=== PATIENT | male | born 1960 ===

== ENCOUNTER 2017-08-30 10:33 | Inpatient (IN) | payer BC, SELFPAY ==
[~2017-08-30 10:33] MED LIST: ISOVUE-370 76%-LOCM 1 ML ONE
[2017-08-30 10:54] LABS: #Lymphocytes 0.8 thou/uL (1.20-3.40); #Monocytes 1.6 thou/uL (0.11-0.59); #Neutrophils 11.8 thou/uL (1.40-6.50); %Eosinophils 0.2 % (0.0-10.0); %Lymphocytes 5.7 % (21.0-51.0); %Monocytes 11.1 % (0.0-10.0); %Neutrophils 83.1 % (42.0-75.0); Hemoglobin 13.4 g/dL (14.0-18.0); Mean Corpuscular Hemoglobin 35.3 pg (27.0-31.0); Mean Platelet Volume 8.3 fL (7.4-10.4); Platelet Count 121 thou/uL (130-400); RBC Distribution Width 13.8 % (11.5-14.5); Red Blood Cell (RBC) Count 3.81 mill/uL (4.70-6.10); White Blood Cell (WBC) Count 14.2 thou/uL (4.8-10.8)
[2017-08-30 10:58] LABS: PTT 31.4 SEC (22.9-36.1); Prothrombin Time 13.4 SEC (12.0-14.7)
[2017-08-30 11:13] LABS: Acetaminophen Less than 6.0 mcg/mL (10.0-30.0); Alcohol Less than 10 mg/dL (Less than 10); CK (CPK) 1025 U/L (30-200); Salicylate Less than 8.0 mg/dL (15.0-30.0)
[2017-08-30 11:14] LABS: ALT (SGPT) 40 U/L (8-55); AST (SGOT) 40 U/L (5-34); Albumin 4.2 g/dL (3.5-5.0); Alkaline Phosphatase 78 U/L (40-150); Anion Gap 18 mmol/L (10-20); BUN (Urea Nitrogen) 26 mg/dL (8.4-25.7); Bilirubin, Total 3.1 mg/dL (0.2-1.2); Calc. Creatinine Clearance 0 mL/min (70-130); Calcium 9.8 mg/dL (7.8-10.44); Carbon Dioxide 21 mmol/L (22-29); Chloride 102 mmol/L (98-107); Estimated GFR-MDRD 72; Globulin 3.8 g/dL (2.4-3.5); Glucose 184 mg/dL (70-105); Potassium 3.6 mmol/L (3.5-5.1); Sodium 137 mmol/L (136-145)
[2017-08-30 11:29] LABS: Bilirubin Small (Negative); Blood, Urine Moderate (Negative); Glucose, Urine (Dipstick) 250 mg/dL (Negative); Leukocyte Negative (Negative); Nitrite Negative (Negative); Protein, Urine (Dipstick) 100 mg/dL (Neg-Trace); Urobilinogen 0.2 mg/dL (0.2-1.0)
[2017-08-30 11:35] LABS: Clarity Hazy (Clear)
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
[2017-08-30] MEDS ORDERED: Adacel (T-DAP) 0.5 ML VIAL ONE (11:39)
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
[2017-08-30 11:43] LABS: Bacteria/HPF None Seen HPF (None Seen); RBC/HPF 0-3 HPF (0-3); Squamous Epithelial 0-3 HPF (0-3); WBC/HPF 0-3 HPF (0-3)
[2017-08-30 11:44] LABS: Crystals/HPF RARE AMORPH URATES HPF (Negative); Hyaline Casts/LPF NONE SEEN LPF (0-3 Hyaline)
[2017-08-30 11:45] LABS: Amphetamine Not Detected (NotDetected); Barbiturates Screen Not Detected (NotDetected); Benzodiazepine Screen Not Detected (NotDetected); Cocaine Metabolite Screen Not Detected (NotDetected); Medtox Control Line Valid? VALID (VALID); Medtox Reader # READER 1; Methadone Not Detected (NotDetected); Methamphetamine Not Detected (NotDetected); Opiate Screen Not Detected (NotDetected); Oxycodone Screen Not Detected (NotDetected); Phencyclidine (PCP) Not Detected (NotDetected); THC/Cannabinoid Screen Not Detected (NotDetected); Tricyclic Screen Not Detected (NotDetected)
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
[2017-08-30] MEDS ORDERED: Dextrose 5% in Water 1,000 ML IV PRN (12:33)
[2017-08-30] MEDS ORDERED: Ondansetron HCl/PF 4 MG/2 ML Vial IVP PRN (12:33)
[2017-08-30] MEDS ORDERED: Dextrose 50% Abboject 50 ML SYRINGE SLOW IVP PRN (12:33)
[2017-08-30] MEDS ORDERED: Sodium Chloride 0.9% 1,000 ML IV SCH ×2 (12:45→14:47)
[2017-08-30 13:16] LABS: Magnesium 1.6 mg/dL (1.6-2.6); Phosphorus 2.4 mg/dL (2.3-4.7)
[2017-08-30 13:17] VITALS: BMI 22.1
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
[2017-08-30] MEDS: Labetalol HCl 100 MG/20 ML VIAL SLOW IVP PRN (14:40)
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
[2017-08-30] MEDS: Acetaminophen 1,000 MG in Premix Bag 1 BAG IVPB SCH (17:02)
[2017-08-30] MEDS: Sodium Chloride 0.9% 1,000 ML IV SCH ×2 (17:58→21:24)
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
[2017-08-30] MEDS: Famotidine/PF 20 mg/2ml Vial SLOW IVP SCH (21:24)
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
[2017-08-31] MEDS: Acetaminophen 1,000 MG in Premix Bag 1 BAG IVPB SCH ×6 (00:03→23:55)
[2017-08-31 05:05] LABS: #Lymphocytes 0.7 thou/uL (1.20-3.40); #Monocytes 0.7 thou/uL (0.11-0.59); #Neutrophils 5.9 thou/uL (1.40-6.50); %Eosinophils 0.3 % (0.0-10.0); %Lymphocytes 9.7 % (21.0-51.0); %Monocytes 8.9 % (0.0-10.0); %Neutrophils 81.1 % (42.0-75.0); Hemoglobin 11.6 g/dL (14.0-18.0); Mean Corpuscular Hemoglobin 35.5 pg (27.0-31.0); Mean Platelet Volume 7.8 fL (7.4-10.4); Platelet Count 101 thou/uL (130-400); RBC Distribution Width 13.5 % (11.5-14.5); Red Blood Cell (RBC) Count 3.27 mill/uL (4.70-6.10); White Blood Cell (WBC) Count 7.3 thou/uL (4.8-10.8)
[2017-08-31 05:07] LABS: Anion Gap 14 mmol/L (10-20); BUN (Urea Nitrogen) 19 mg/dL (8.4-25.7); Calc. Creatinine Clearance 98 mL/min (70-130); Calcium 8.5 mg/dL (7.8-10.44); Carbon Dioxide 25 mmol/L (22-29); Chloride 106 mmol/L (98-107); Estimated GFR-MDRD Greater than 90; Glucose 142 mg/dL (70-105); Magnesium 1.5 mg/dL (1.6-2.6); Potassium 3.5 mmol/L (3.5-5.1); Sodium 141 mmol/L (136-145)
[2017-08-31] MEDS: Sodium Chloride 0.9% 1,000 ML IV SCH ×2 (05:37→17:29)
--- NOTE | 2017-08-31 08:22 | CT ---
PRELIMINARY REPORT/[facility]/EMERGENTY AFTER-HOURS PROCEDURE Addendum created by Anjel Clayton MD on 08/31/2017 5:19 AM Central Time ([place] & [place]) IMPRESSION: 1. Intraparenchymal, epidural, subdural and subarachnoid hemorrhages as described above, not signific antly changed from prior examination. 2. New small intraventricular hemorrhage in the right occipital horn. 3. New 3 mm midline shift to the left and mild left subfalcine herniation. 4. Multiple calvarial and facial fractures as described above. Extension of the skull base fracture i nto the right carotid canal. Recommend CT angiogram for further evaluation. THIS REPORT CONTAINS FINDINGS THAT MAY BE CRITICAL TO PATIENT CARE. The findings were verbally commun icated via telephone conference with EVELIN Baptiste at 5:19 AM CDT on 08/31/2017. The findings were acknowledged and understood. Initial Report created on 08/31/2017 5:08 AM Central Time ([place] & [place]) CT Head Without Intravenous Contrast CLINICAL HISTORY: 57 years old, male; Condition or disease; Other: Follow up tbi, sah, sdh TECHNIQUE: Axial computed tomography images of the head/brain without intravenous contrast. COMPARISON: CT Brain WO Con 2017-08-30 13:27 FINDINGS: Large right inferior frontal lobe and right anterior temporal lobe parenchymal contusions with surrou nding vasogenic edema, unchanged. Large temporal occipital epidural hemorrhage measuring approximately 19 mm in thickness with mass eff ect to the left temporal lobe, unchanged. Right anterior frontal lobe subdural hemorrhage measuring 8mm in greatest thickness, unchanged. Right temporal lobe subdural hemorrhage measuring approximately 6 mm in greatest thickness, unchanged. Lay ering right greater than left bilateral tentorial subdural hemorrhage, unchanged. Left posterior parietal and occipital subdural hemorrhage measuring 17 mm in greatest thickness, unchanged . Left cerebellar hemisphere subdural hemorrhage measuring 22 mm in greatest thickness, unchanged. Right greater than left bilateral frontal, parietal and temporal subarachnoid hemorrhages, unchanged. Small left parafalcine subarachnoid hemorrhages, unchanged. New small hemorrhage within the right occipital horn without acute hydrocephalus. New 3 mm midline shift to the left and mild left subfalcine herniation. Basal cisterns are patent. Comminuted bilateral nasal bone and septum fractures with overlying soft tissue swelling. Nondisplaced left parietal bone fracture extending into the left petrous temporal bone fracture with opacification of the left mastoidal air cells. Comminuted left greater than right bilateral occipital bone fractures extending into the foramen magn um inferiorly and into the left posterior parietal bone superiorly. Small osseous fragment protrudes into the left occipital bone. Right occipital bone fracture extending into the jugular foramen, petrous apex and right carotid. Opacification with air fluid level in the left frontal and bilateral sphenoid sinuses. Persistent opacification of the ethmoid sinus. IMPRESSION: 1. Intraparenchymal, subdural and subarachnoid hemorrhages as described above, not significantly jordan ged from prior examination. 2. New small intraventricular hemorrhage in the right occipital horn. 3. New 3 mm midline shift to the left and mild left subfalcine herniation. 4. Multiple calvarial and facial fractures as described above. Extension of the skull base fracture i nto the right carotid canal. Recommend CT angiogram for further evaluation. Thank you for allowing us to participate in the care of your patient. Dictated and Authenticated by: Anjel Clayton MD 08/31/2017 5:08 AM Central Time ([place] & [place]) FINAL REPORT BRAIN CT WITHOUT IV CONTRAST: EMERGENCY AFTER HOURS EXAM TIME: 3:38 a.m. DATE: 08/31/17. COMPARISON: 08/30/17. FINDINGS: Extensive stable intraparenchymal, epidural, subdural, and subarachnoid hemorrhagic changes with mini mal right occipital horn intraventricular hemorrhage. There are approximately 3 mm of midline shift to the left which is slightly more prominent than on the prior study. Multiple facial and calvarial fractures including skull base fractures. POS: OFF
[2017-08-31] MEDS ORDERED: Potassium Phosphate 30 MMOL, Magnesium Sulfate 4 GM in Sodium Chloride 0.9% 250 ML 250 ML IVPB SCH (08:30)
[2017-08-31] MEDS ORDERED: Prevnar 13-Val Conj/PF 0.5 ML SYRINGE IM ONE (09:00)
[2017-08-31] MEDS ORDERED: Lorazepam 2 MG/ML VIAL SLOW IVP SCH (09:00)
[2017-08-31] MEDS: Multivitamins, Adult 10 ML, Thiamine HCl 100 MG, Folic Acid 1 MG in Dextrose 5 %-0.45 %... IV SCH (09:47)
[2017-08-31] MEDS: Famotidine/PF 20 mg/2ml Vial SLOW IVP SCH ×2 (09:48→21:00)
[2017-08-31] MEDS ORDERED: ISOVUE-370 76%-LOCM 1 ML ONE (09:54)
[2017-08-31] MEDS: Labetalol HCl 100 MG/20 ML VIAL SLOW IVP PRN (11:33)
--- NOTE | 2017-08-31 11:47 | PRG ---
DATE OF SERVICE: 08/31/2017 The patient was seen and examined. I agree with Jeanette Baptiste's evaluation on 08/30/2017. The patient is a 57-year-old male, alcoholic, found down. He is awake and generally will follow comm ands. He is verbal, but disoriented. He has periorbital ecchymoses. His imaging revealed a fairly extensive left middle cranial fossa and posterior fossa subdural hemato ma with pneumocephalus. He also has significant right frontal and temporal contusional injury. This was stable on followup CT scan. The patient's coags were normal and his platelet on the lower side, but still over 100. IMPRESSION AND PLAN: The patient has a significant intracranial injury. I suspect he has had a frac ture involving the mastoid sinus on the left and presumably laceration of the transverse sinus causin g extensive subdural hematoma. There is no meaningful mass effect from his intracranial injury. I d o not see any surgical indications. He is likely to have significant neurologic debility from the ex tent of this injury and I anticipate he will ultimately need placement. At this point, no plans for neurosurgical intervention. Continue observation and gradual increased d iet and mobilization. With respect to the patient's thoracic compression fracture, I am recommending a TLSO brace that he s hould wear whenever upright.
--- NOTE | 2017-08-31 11:58 | CT ---
CT ANGIO HEAD WITH AND WITHOUT CONTRAST: Multiple axial tomograms are obtained through the head without IV enhancement. There is followed by multiple tomograms through the head following a cerebral angio protocol with IV contrast. Multiplana r reconstruction and 3D post processing performed. INDICATION: Head trauma with skull fractures. Skull fractures involving the right internal carotid artery canal within the right temporal bone. The exam was performed to assess patency of the internal carotid art eries. FINDINGS: The intracranial internal carotid arteries are patent. There is luminal narrowing in the intracrania l right internal carotid artery within the carotid canal at the site of the previously described frac ture. There is no contrast extravasation identified. Findings may represent some peripheral thrombu s within the lumen at this site producing luminal narrowing. The left intracranial internal carotid artery is unremarkable. Supraclinoid internal carotid arteries are unremarkable. The middle cerebral arteries, anterior cere bral arteries, posterior cerebral arteries, and basilar artery appear unremarkable. The noncontrast exam again shows extensive subdural, subarachnoid, and parenchymal hemorrhages which have been previously described and show no significant change when compared to the scan earlier this morning at 3:30 a.m. Numerous skull fractures have been previously described. Fracture through the right temporal lobe wh ich does involve the right carotid canal is again noted. IMPRESSION: Coronal images demonstrate luminal narrowing in the right intracranial internal carotid artery within the carotid canal at the site of the fracture. No extravasation is seen. The vessel is patent. Fi ndings may represent peripheral thrombus or mural edema producing luminal narrowing at this site. Th e intracranial cerebral arteries are unremarkable as described above. CT ANGIO NECK: Multiple axial tomograms are obtained through the neck with IV contrast following the angio protocol with multiplanar reconstruction and 3D post processing. INDICATION: Trauma. Assess pain to carotid arteries. FINDINGS: No evidence of stenosis or abnormality at the origin of the arch vessels. Both common carotid arteries are unremarkable. Carotid bifurcation and carotid bulbs are unremarkable bilaterally. No significant atherosclerotic c hange. The extracranial internal carotid arteries are unremarkable bilaterally. Vertebral arteries are patent and symmetric. Review of lung windows reveals patchy infiltrates in both mid lung muniz posteriorly. Findings are concerning for pneumonia, possibly aspiration. Recommend clinical correlation and close followup. Soft tissues of the neck otherwise unremarkable. IMPRESSION: 1. Unremarkable CT angiogram of the extracranial carotid arteries and vertebral arteries. 2. Lung windows show patchy infiltrates in the posterior mid lung muniz bilaterally. POS: [facility]
--- NOTE | 2017-08-31 12:56 | RAD ---
RADIOGRAPH ABDOMEN ONE VIEW PORTABLE SUPINE: 08/31/2017 10:06 a.m. HISTORY: A 57-year-old male with abdominal pain. Probable ileus. FINDINGS: IV contrast material if faintly present in the nondilated bilateral renal collecting systems, in segm ents of nondilated bilateral ureters, and a large amount in the distended urinary bladder. The bowel gas pattern is normal, with gas in nondilated loops of colon and little or no gas in the small intes aamir. No gas-filled dilated small bowel loops are visualized. IMPRESSION: 1. Distended urinary bladder. 2. Normal bowel gas pattern. POS: [facility]
--- NOTE | 2017-08-31 17:36 | PRG ---
DATE OF SERVICE: 08/31/2017 SUBJECTIVE: The patient is status post fall alleged down multiple stairs, which he sustained a signi ficant intracranial injury, specifically an extensive subdural hematoma, this is currently being lasha ged nonoperatively. The patient also sustained thoracic compression fractures which are being treate d with TLSO brace. The patient had no issues overnight. He has been fitted with his TLSO brace. He has not passed his swallow study at the bedside. We are still awaiting evaluation by Speech for a f ormal evaluation. PHYSICAL EXAMINATION: VITAL SIGNS: Temperature is 98.9, heart rate 102, blood pressure 146/86, respirations 26, oxygen sat uration is 94% on room air. GENERAL: The patient is lying in critical care unit bed. He was awake, but definitely confused, marcelina l follow very simple commands. The patient's [place] coma scale is E3 V3 M6. HEENT: Unremarkable. As far as any changes, the patient still has significant bilateral periorbital ecchymosis, but the swelling has decreased. NECK: Remains in an [place] collar. CHEST: Clear to auscultation with moderate inspiratory and expiratory effort. HEART: Has regular rate and rhythm with episodes of tachycardia. ABDOMEN: Soft, flat and nondistended with hypoactive bowel sounds. EXTREMITIES: The patient is moving all 4 extremities freely. Pulses are 2+ and capillary refill is less than 3 seconds. LABORATORY DATA AND IMAGING DATA: White blood cell count 7.3, hemoglobin 11.6, hematocrit 33.1, plat elets 101. Sodium 141, potassium 3.5, chloride 106, CO2 25, BUN 19, creatinine 0.83, magnesium 1.5, and phosphorus 2.0. Abdominal x-ray shows distended urinary bladder with an otherwise normal bowel g as pattern. ASSESSMENT AND PLAN: 1. Status post fall. 2. Acute severe traumatic brain injury. 3. Basilar skull fracture. 4. Complex nasal bone fracture. 5. Left fifth rib fracture. 6. T12 compression fracture. Plan will be to continue nonoperative management of all of his injuries. He will remain on the [facility] for at least one more day. We will await recommendations by speech. Continue physical and occupational therapy. Replace his electrolytes and follow up again in the morning. The evaluat ion and examination were discussed with Dr. Smith during rounds this morning.
[2017-08-31] MEDS: Oxazepam 10 MG CAP PO SCH (23:27)
[2017-09-01] MEDS: Sodium Chloride 0.9% 1,000 ML IV SCH ×4 (04:38→21:41)
[2017-09-01] MEDS: Acetaminophen 1,000 MG in Premix Bag 1 BAG IVPB SCH (05:47)
[2017-09-01 05:59] LABS: Anion Gap 11 mmol/L (10-20); BUN (Urea Nitrogen) 18 mg/dL (8.4-25.7); CK (CPK) 206 U/L (30-200); Calc. Creatinine Clearance 92 mL/min (70-130); Calcium 8.1 mg/dL (7.8-10.44); Carbon Dioxide 25 mmol/L (22-29); Chloride 108 mmol/L (98-107); Estimated GFR-MDRD 87; Glucose 125 mg/dL (70-105); Magnesium 2.1 mg/dL (1.6-2.6); Potassium 3.4 mmol/L (3.5-5.1); Sodium 141 mmol/L (136-145)
[2017-09-01 06:37] LABS: Band 37 % (5-11); Hemoglobin 10.5 g/dL (14.0-18.0); Lymphocytes 29 % (21-51); MDiff Complete? YES; Mean Corpuscular HGB CONC 33.6 g/dL (32.0-36.0); Mean Corpuscular Hemoglobin 34.4 pg (27.0-31.0); Monocytes 3 % (0-10); Neutrophil 31 % (42-75); Nucleated RBC 1 % (0); PLT Morphology Comment Appears Decreased; Platelet Count 108 thou/uL (130-400); RBC Distribution Width 13.7 % (11.5-14.5); Red Blood Cell (RBC) Count 3.04 mill/uL (4.70-6.10)
[2017-09-01] MEDS: Oxazepam 10 MG CAP PO SCH ×5 (06:58→21:41)
[2017-09-01] MEDS ORDERED: Potassium Phosphate 30 MMOL in Sodium Chloride 0.9% 250 ML 250 ML IVPB SCH (08:00)
[2017-09-01] MEDS: Famotidine/PF 20 mg/2ml Vial SLOW IVP SCH ×2 (08:27→20:35)
[2017-09-01] MEDS: Multivitamins, Adult 10 ML, Thiamine HCl 100 MG, Folic Acid 1 MG in Dextrose 5 %-0.45 %... IV SCH (08:51)
--- NOTE | 2017-09-01 09:17 | PRG ---
DATE OF SERVICE: 09/01/2017 NEUROSURGERY PROGRESS NOTE Mr. Reis is starting his 3rd hospital day with us. He remains in the ICU. His T-max overnight was 99.8, heart rate is up and the other vital signs are stable. On examination, Mr. Reis is resting comfortably in bed as I entered the room. To loud enough v oice, he begins to open his eyes. He intermittently follows commands. I believe I got him to raise his right thumb and to squeeze his left hand. He most certainly localizes with both upper extremitie s and withdraws his lower extremities quite briskly. I could never get him to quite wiggle his toes for me. As I was leaving the room, he quickly drifts back to sleep. I reviewed prior CT imaging and there is likely transverse sinus injury resulting in a significant am ount of either subdural or epidural blood stretching from the occipital region all the way to the mid dle fossa on the left side. There are some frontal contusions and temporal contusions on the right s almaz. There is subarachnoid hemorrhage in the sulci over the convexity. There is a cerebellar hemato ma underlying a fracture in the low cerebellum on the left side. We will continue to follow Mr. Reis. Currently, he does not need surgical intervention as his neurological examination is stable and surgery could expose him to a risk of significant blood loss. If indeed, the transverse sinus has been torn.
[2017-09-01] MEDS ORDERED: Ketorolac Tromethamine 30 MG/ML VIAL IVP SCH ×2 (11:30→18:00)
[2017-09-01] MEDS: Acetaminophen 650 MG Suppository PR SCH ×2 (11:55→17:52)
[2017-09-01] MEDS ORDERED: Albumin 25% 25 GM/100 ML BOT IVPB SCH ×2 (13:15→20:11)
--- NOTE | 2017-09-01 14:20 | RAD ---
PORTABLE SUPINE CHEST: Date: 09/01/17 INDICATION: Hypoxia. Tachycardia. COMPARISON: 08/30/17. FINDINGS: There is new extensive confluent infiltrate throughout the right lung since the prior study. The left lung is well aerated and clear. IMPRESSION: New confluent consolidation seen involving the right mid and lower lung. POS: [facility]
[2017-09-01] MEDS: Piperacillin/Tazobactam 3.375 GM in Sodium Chloride 0.9% 100 ML IVPB SCH ×2 (14:31→19:43)
--- NOTE | 2017-09-01 18:16 | PRG ---
DATE OF SERVICE: 09/01/2017 SUBJECTIVE: The patient is hospital day #3 status post fall in which he sustained a significant intr acranial hemorrhage. The patient reportedly had some increased tachycardia and increasing respirator y rate with declining saturations. We will order a chest x-ray this morning, still no fevers. The p atient will intermittently follow commands and the nurses report just some agitation overnight that s eemed to be controlled with pain medication. PHYSICAL EXAMINATION: VITAL SIGNS: Temperature is 99.8, heart rate 120, respirations 20, oxygen saturation 94% on 2 liters via nasal cannula, blood pressure is 91/59. GENERAL: The patient is resting in bed. He was asleep, but was easily awakened. The patient would follow simple commands and answers some very simple questions though he was definitely somnolent and appeared tired, which would be consistent with the nurses report from last night. HEENT: Unchanged. LUNGS: The patient has rhonchi bilaterally, more on the right than left. HEART: Tachycardic, regular rhythm. ABDOMEN: Soft, flat, nontender with hypoactive bowel sounds. EXTREMITIES: Neurovascularly intact x4. The patient freely moves all 4 extremities. Strength is eq ual bilaterally. Capillary refill is less than 3 seconds. Pulses are 2+. LABORATORY DATA: White blood cell count 2.0, hemoglobin 10.5, hematocrit 31.1, platelets 108, bands 37. Sodium 141, potassium 3.4, chloride 108, CO2 of 25, BUN 18, creatinine 0.90, glucose 125, magnes ium 2.1, phosphorus 2.0. CK 206. A radiograph this morning shows a consolidation involving the right middle and lower lung. ASSESSMENT AND PLAN: 1. Status post ground level fall. 2. Acute severe traumatic brain injury. 3. Basilar skull fracture. 4. Complex nasal bone fracture. 5. Left fifth rib fracture. 6. T12 compression fracture. 7. Right-sided pneumonia. Plan will be to initiate Zosyn. We will draw blood cultures increase his pulmonary toilet, replace h is electrolytes and continue his supportive care. We will have RT closely monitor the patient for hi s possible increased oxygen demand and adjust accordingly to include placing the patient on BiPAP if needed. The evaluation, examination, laboratory and radiographic findings will be discussed with Dr. Smith after this dictation.
[2017-09-01] MEDS ORDERED: Lorazepam 2 MG/ML VIAL SLOW IVP PRN ×2 (19:20→20:32)
[2017-09-01] MEDS ORDERED: Sodium Chloride 0.9% 1,000 ML IV SCH ×2 (20:15)
[2017-09-01] MEDS ORDERED: Ventilator Sedation Protocol 1 EACH FS SCH (20:30)
[2017-09-01] MEDS ORDERED: Propofol 1,000 MG/100 ML VIAL IV PRN (20:32)
[2017-09-01] MEDS ORDERED: Propofol BOLUS 1,000 MG/100 ML VIAL IV PRN (20:32)
[2017-09-01] MEDS ORDERED: DISCONTINUE PREVIOUS NARCOTIC PAIN MEDICATIONS AND BENZODIAZEPINES FS SCH (20:32)
[2017-09-01] MEDS ORDERED: Fentanyl BOLUS 250 ML IVPB PRN (20:32)
[2017-09-01] MEDS ORDERED: fentaNYL Citrate/PF 2,000 MCG in Sodium Chloride 0.9% 60 ML IV SCH (20:33)
[2017-09-01 21:25] LABS: Actual Bicarbonate (HCO3a) 14.6 mEq/L (22-28); Base Excess (BEa) -10.2 mEq/L (-2.0 to +3.0); CO2 Tension 28.7 mmHg (35.0-45.0); Hematocrit-ABG 25.4 % (42.0-52.0); Hemoglobin (Hb) 8.9 g/dL (14.0-18.0); O2 Tension (PaO2) 77.2 mmHg (80.0-100.0); pH, Arterial 7.33 (7.35-7.45)
[2017-09-01 21:26] LABS: ALV-art Gradient 528.625 (0-20); Puncture Site RRAD
--- NOTE | 2017-09-01 21:31 | RAD ---
CHEST ONE VIEW: 08/22/17 COMPARISON: 09/01/17 at 1:09 p.m. HISTORY: Tachycardia. Increased O2 demand. Hypoxia. FINDINGS: Interval placement of endotracheal and nasogastric tubes. Worsening opacification of the right hemith orax due to parenchymal changes. Small right sided pleural effusion cannot be excluded. There appear to be patchy interstitial opacities in the left lung base. No pneumothorax or osseous abnormalities. IMPRESSION: 1. Interval placement of endotracheal and nasogastric tube. 2. Worsening opacification of lung parenchyma. POS: [facility]
[2017-09-01 22:11] LABS: Hemoglobin 8.8 g/dL (14.0-18.0); Mean Corpuscular HGB CONC 34.7 g/dL (32.0-36.0); Mean Corpuscular Hemoglobin 36.4 pg (27.0-31.0); Mean Platelet Volume 7.8 fL (7.4-10.4); Platelet Count 78 thou/uL (130-400); RBC Distribution Width 13.6 % (11.5-14.5); Red Blood Cell (RBC) Count 2.41 mill/uL (4.70-6.10); White Blood Cell (WBC) Count 0.3 thou/uL (4.8-10.8)
[2017-09-01 22:46] LABS: Anion Gap 19 mmol/L (10-20); BUN (Urea Nitrogen) 30 mg/dL (8.4-25.7); Calc. Creatinine Clearance 45 mL/min (70-130); Calcium 7.5 mg/dL (7.8-10.44); Carbon Dioxide 16 mmol/L (22-29); Chloride 112 mmol/L (98-107); Estimated GFR-MDRD 38; Glucose 118 mg/dL (70-105); Magnesium 1.6 mg/dL (1.6-2.6); Phosphorus 4.2 mg/dL (2.3-4.7); Potassium 2.5 mmol/L (3.5-5.1); Sodium 144 mmol/L (136-145)
[2017-09-01] MEDS ORDERED: Magnesium 2 GM/NS 0.9% 100 ML 2 GM in Premix Bag 1 BAG IVPB SCH (23:59)
[2017-09-02] MEDS: Acetaminophen 650 MG/20.3 ML UDCUP PO SCH ×4 (00:15→15:20)
[2017-09-02] MEDS: Sodium Chloride 0.9% 1,000 ML IV SCH ×3 (00:15→14:17)
[2017-09-02] MEDS: Piperacillin/Tazobactam 3.375 GM in Sodium Chloride 0.9% 100 ML IVPB SCH ×3 (01:01→14:10)
[2017-09-02] MEDS: Oxazepam 10 MG CAP PO SCH ×2 (05:35→14:21)
[2017-09-02 05:39] LABS: Actual Bicarbonate (HCO3a) 12.6 mEq/L (22-28); Base Excess (BEa) -13.1 mEq/L (-2.0 to +3.0); CO2 Tension 28.1 mmHg (35.0-45.0); Hematocrit-ABG 22.3 % (42.0-52.0); Hemoglobin (Hb) 8.1 g/dL (14.0-18.0); O2 Tension (PaO2) 93.1 mmHg (80.0-100.0); pH, Arterial 7.27 (7.35-7.45)
[2017-09-02 05:40] LABS: ALV-art Gradient 584.775 (0-20); Puncture Site RRAD
[2017-09-02] MEDS ORDERED: Norepinephrine 8 MG/0.9% NS 250 ML ONE (05:53)
[2017-09-02] MEDS ORDERED: Sodium Bicarb 50 MEQ/50 ML Abboject 8.4% SYRINGE ONE ×6 (05:57→17:44)
[2017-09-02] MEDS: Norepinephrine 8 MG/250 ML BAG IVPB PRN ×4 (06:00→17:27)
[2017-09-02] MEDS ORDERED: Sodium Bicarb 50 MEQ/50 ML Abboject 8.4% SYRINGE IVP SCH ×3 (06:00→15:15)
[2017-09-02 06:14] LABS: Mean Corpuscular HGB CONC 31.1 g/dL (32.0-36.0); Mean Corpuscular Hemoglobin 33.6 pg (27.0-31.0); Mean Platelet Volume 8.9 fL (7.4-10.4); Platelet Count 76 thou/uL (130-400); RBC Distribution Width 13.8 % (11.5-14.5); Red Blood Cell (RBC) Count 2.39 mill/uL (4.70-6.10); White Blood Cell (WBC) Count 0.6 thou/uL (4.8-10.8)
[2017-09-02 06:18] LABS: MDiff Complete? YES
[2017-09-02 06:19] LABS: Band 19 % (5-11); Lymphocytes 47 % (21-51); Metamyelocyte 8 % (0-0); Microcytosis MODERATE=15-30 cells (100X) (0-5/hpf); Monocytes 8 % (0-10); Myelocyte 4 % (0-0); Neutrophil 14 % (42-75); Nucleated RBC 4 % (0); PLT Morphology Comment Appears Decreased; Polychromasia SLIGHT = 2-3 cells (100X) (0-2/hpf); Reflex for Review?? NO; Spherocytes SLIGHT = 1-5 cells (100X) (None Seen); Toxic Granulation MODERATE; Vacuoles MODERATE
[2017-09-02 06:24] LABS: Anion Gap 19 mmol/L (10-20); BUN (Urea Nitrogen) 33 mg/dL (8.4-25.7); Calc. Creatinine Clearance 38 mL/min (70-130); Calcium 7.3 mg/dL (7.8-10.44); Carbon Dioxide 15 mmol/L (22-29); Chloride 113 mmol/L (98-107); Estimated GFR-MDRD 32; Glucose 101 mg/dL (70-105); Magnesium 2.1 mg/dL (1.6-2.6); Phosphorus 5.8 mg/dL (2.3-4.7); Potassium 2.8 mmol/L (3.5-5.1); Sodium 144 mmol/L (136-145)
[2017-09-02 06:25] LABS: CKMB 1.2 ng/mL (0-6.6); Troponin I Less than 0.010 ng/mL (< 0.028)
[2017-09-02] MEDS ORDERED: Potassium Chloride 40 MEQ in Premix Bag 1 BAG IVPB SCH (07:00)
--- NOTE | 2017-09-02 08:11 | RAD ---
PORTABLE SUPINE CHEST: Date: 09/02/17 HISTORY: Shortness of breath. Ventilator. CCU follow-up. COMPARISON: 09/01/17. IMPRESSION: Confluent consolidation throughout the right lung is again noted. There is evidence of associated rig ht pleural effusion. Left lung remains clear with some mild atelectasis in the left lung base. ET tube and NG tube remain in position. POS: [facility]
[2017-09-02] MEDS ORDERED: Sodium Bicarbonate 150 MEQ in Dextrose 5% in Water 1,000 ML IV SCH ×4 (08:15→15:30)
[2017-09-02 08:27] LABS: Actual Bicarbonate (HCO3a) 14.6 mEq/L (22-28); Base Excess (BEa) -11.7 mEq/L (-2.0 to +3.0); CO2 Tension 34.4 mmHg (35.0-45.0); O2 Tension (PaO2) 79.7 mmHg (80.0-100.0); pH, Arterial 7.25 (7.35-7.45)
[2017-09-02 08:34] LABS: Hemoglobin (Hb) 9.1 g/dL (14.0-18.0)
[2017-09-02 08:36] LABS: Puncture Site ALINE
--- NOTE | 2017-09-02 09:09 | PRG ---
DATE OF SERVICE: 09/02/2017 I saw Mr. Reis in the ICU this morning. Yesterday, he began to have hypotension and hypoxia. A chest x-ray showed infiltrates in the right lung and it was felt he was becoming septic from his se neha pneumonia, likely aspiration. He was intubated. During the intubation, he was purposeful with all 4 extremities. In fact, before intubation, he was attempting to participate in conversation and following commands quite well. Overnight, the T-max, was 99.8 previous day it was 102.1, his blood p ressure is in the 80s-90s; currently, he is on Levophed. His heart rate is high. His respiratory ra te is high. On examination, Mr. Reis is intubated and restrained. To the midline stimulus, he localizes amadou th upper extremities briskly and withdraws both lower extremities briskly. He is quite purposeful. This is a neurological examination, we can follow over time. TEST RESULTS: His white blood cell count dropped yesterday to 0.3 and a repeat test this morning was 0.6; this is quite low. In speaking with the Trauma service, I feel that his low white blood cell count and deterioration was related to sepsis from the severe pneumonia. I will let them continue to manage that. While he is intubated, he will need q.4-hour neuro checks at least to ensure neurological stability. I am concerned about a high-volume IV rehydration in the setting of his brain injury. I suppose the best we can do is to keep all those fluids isotonic or hypertonic. Neurosurgery team will continue t o follow closely.
[2017-09-02] MEDS ORDERED: Vasopressin 40 UNIT, Admixture Fee 1 EACH in Sodium Chloride 0.9% 98 ML IV SCH (09:45)
[2017-09-02] MEDS ORDERED: Hydrocortisone Sod Succ/PF 100 mg/2 ml Vial IVP SCH ×2 (09:45→18:00)
[2017-09-02] MEDS: Famotidine/PF 20 mg/2ml Vial SLOW IVP SCH (10:08)
[2017-09-02] MEDS: Multivitamins, Adult 10 ML, Thiamine HCl 100 MG, Folic Acid 1 MG in Dextrose 5 %-0.45 %... IV SCH (11:15)
[2017-09-02 11:29] LABS: Lactic Acid 7.3 mmol/L (0.5-2.2)
[2017-09-02 12:08] VITALS: TEMP 99.7
[2017-09-02] MEDS ORDERED: Vecuronium 10 MG VIAL ONE (13:32)
[2017-09-02] MEDS ORDERED: Calcium Chloride 1 GM/10 ML Abboject SYRINGE IVP SCH (13:45)
[2017-09-02] MEDS ORDERED: Vecuronium 10 MG VIAL IVP SCH (13:45)
[2017-09-02] MEDS ORDERED: Vecuronium Bromide 20 MG VIAL IV SCH (13:45)
--- NOTE | 2017-09-02 13:45 | PRG ---
DATE OF SERVICE: 09/02/2017 SUBJECTIVE: The patient is currently in the Critical Care Unit. He is hospital day #4 status post a fall, in which he sustained a significant intracranial hemorrhage. The patient since yesterday has become increasingly sick primarily due to his right-sided pneumonia, whose hypoxia increased to the p oint that he required intubation and mechanical ventilatory support. During the night, he also becam e significantly hypotensive and his urinary output dropped significantly necessitating placement of a triple-lumen central venous catheter and arterial line. The patient was then started on pressors. He was resuscitated for his septic shock and this morning, we are waiting to do his bronchoscopy. PHYSICAL EXAMINATION: VITAL SIGNS: Temperature 99.8, heart rate 147, respirations 42, oxygen saturation is 91% on 100% by mechanical ventilation, blood pressure 104/68 with Levophed. Vasopressor support at 30. GENERAL: The patient is lying in bed. During his procedures, he would withdraw to painful stimuli, withdrawing both his upper extremities and moving his both lower extremities. LUNGS: Clear essentially on the left. The right side is very diminished with coarse rhonchi and cranberry grower ckles. HEART: Tachycardic with a regular rhythm. ABDOMEN: Soft with absent bowel sounds. EXTREMITIES: Show no pitting edema. Capillary refill is 4 seconds. Pulses are 2+. LABORATORY DATA: White blood cell count 0.6, hemoglobin 8.0, hematocrit 25.8, platelets 76, bands 19 . Sodium 144, potassium 2.8, chloride 113, CO2 of 15, BUN 33, creatinine 2.16, glucose 101. Magnesi um 2.1, phosphorus 5.8. Lactic acid 8.6. CK-MB 1.2, troponin 0.010. BNP 1330. Cortisol 18.6. RADIOGRAPHIC FINDINGS: AP chest shows a confluent consolidation throughout the right lung, there is evidence associated right pleural effusion. The left lung appears clear with some mild atelectasis i n the left lung base. ET tube and NG tube remained in position. ASSESSMENT AND PLAN: 1. Status post fall. 2. Acute severe traumatic brain injury. 3. Basilar skull fracture. 4. Complex nasal bone fracture. 5. Left fifth rib fracture. 6. T12 compression fracture. 7. Right-sided pneumonia. 8. Septic shock secondary to pneumonia. 9. Severe leukopenia. 10. Severe neutropenia. 11. Metabolic acidosis. 12. Respiratory failure, requiring mechanical ventilatory support. Plan will be to continue supportive care. We will add vasopressin to his pressure support attempt to wean down his Levophed, with hopes of assisting with his heart rate reduction, bronchoscopy today. Continue antibiotic therapy, volume support. The patient's condition and status was discussed with hira carrion sisters this morning. We also obtained consent for his procedures to include possibly in the near future the need for a tracheostomy and PEG tube placement in which they were agreeable to. The eval uation, examination, laboratory, and radiographic findings were discussed with Dr. Smith this morning . He will come evaluate the patient and perform his bronchoscopy this morning.
[2017-09-02] MEDS ORDERED: HYDROcodone/Acetaminophen 10/325 mg Tablet PO SCH (14:15)
[2017-09-02] MEDS: Calcium Chloride 1 GM/10 ML Abboject SYRINGE ONE (14:20)
[2017-09-02 14:27] VITALS: BP 91/46
[2017-09-02] MEDS ORDERED: fentaNYL Citrate/PF 2,000 MCG in Sodium Chloride 0.9% 60 ML IV PRN (14:29)
[2017-09-02] MEDS ORDERED: fentaNYL Citrate/PF 2,000 MCG in Sodium Chloride 0.9% 60 ML IV SCH (14:45)
[2017-09-02] MEDS ORDERED: Vecuronium Bromide 50 MG in Sodium Chloride 0.9% 250 ML 250 ML IV SCH (14:45)
[2017-09-02 15:43] LABS: Actual Bicarbonate (HCO3a) 16.4 mEq/L (22-28); Base Excess (BEa) -12.5 mEq/L (-2.0 to +3.0); CO2 Tension 51.4 mmHg (35.0-45.0); O2 Tension (PaO2) 72.2 mmHg (80.0-100.0); pH, Arterial 7.12 (7.35-7.45)
[2017-09-02 15:44] LABS: Hemoglobin (Hb) 9.6 g/dL (14.0-18.0)
[2017-09-02 15:45] LABS: Calcium, Ionized 1.2 mmol/L (1.12-1.30); Puncture Site ALINE
[2017-09-02 16:10] LABS: Actual Bicarbonate (HCO3a) 16.9 mEq/L (22-28); CO2 Tension 43.3 mmHg (35.0-45.0); O2 Tension (PaO2) 82.4 mmHg (80.0-100.0); pH, Arterial 7.21 (7.35-7.45)
[2017-09-02 16:11] LABS: Base Excess (BEa) -10.5 mEq/L (-2.0 to +3.0)
[2017-09-02 16:12] LABS: Calcium, Ionized 1.2 mmol/L (1.12-1.30)
[2017-09-02 16:14] LABS: Puncture Site ALINE
[2017-09-02 16:15] LABS: ALV-art Gradient 576.475 (0-20)
[2017-09-02] MEDS ORDERED: EPINEPHrine 1 MG/10 ML Abboject SYRINGE ONE (17:00)
[2017-09-02] MEDS ORDERED: Calcium Chloride 1 GM/10 ML Abboject SYRINGE ONE (17:00)
--- NOTE | 2017-09-02 18:13 | OP ---
DATE OF PROCEDURE: 09/02/2017 PREOPERATIVE DIAGNOSES: 1. Acute hypoxemic respiratory failure. 2. Status post apparent fall. 3. Acute severe traumatic brain injury with multiple intracerebral hemorrhages. POSTOPERATIVE DIAGNOSES: 1. Acute hypoxemic respiratory failure. 2. Status post apparent fall. 3. Acute severe traumatic brain injury with multiple intracerebral hemorrhages. PROCEDURE PERFORMED: Fiberoptic bronchoscopy will bronchioalveolar lavage. INDICATIONS FOR PROCEDURE: A 57-year-old man status post apparent fall. The patient sustained a sev ere acute traumatic brain injury with multiple intracerebral hemorrhages. He developed worsening hyp oxemic acute respiratory failure requiring mechanical ventilator support yesterday. Chest x-ray reve als dense right pulmonary infiltrates. Decision was made to perform a bronchoscopy both for diagnost ic and therapeutic purposes. Findings are consistent with copious bilious pulmonary aspiration. DESCRIPTION OF PROCEDURE: Informed consent obtained from the patient's family. The patient was plac ed in supine position. Placed on full mechanical ventilator support, FiO2 set at 100%. Fiberoptic b ronchoscope introduced through the previous endotracheal tube and advanced to visualize the jorden. The scope was advanced to left upper and left lower lobes. Large amount of bilious pulmonary secreti ons were evacuated. Scope was then withdrawn and advanced through the right upper lobe, bronchus int ermedius and finally right lower lobe again. Extensive amount of bilious aspirates was evacuated. F ollowing pulmonary toileting, bronchoscope was withdrawn visualizing intact tracheobronchial mucosa. There are some burn stains of the tracheal mucosa. The patient remained hemodynamically stable following completion of the procedure. Oxygen saturation was in excess of 90% throughout the procedure.
[2017-09-02 18:17] LABS: Hemoglobin 9.4 g/dL (14.0-18.0); Mean Corpuscular HGB CONC 32.2 g/dL (32.0-36.0); Mean Corpuscular Hemoglobin 34.7 pg (27.0-31.0); Mean Platelet Volume 9.3 fL (7.4-10.4); Platelet Count 142 thou/uL (130-400); RBC Distribution Width 14.3 % (11.5-14.5); Red Blood Cell (RBC) Count 2.71 mill/uL (4.70-6.10)
[2017-09-02 18:27] LABS: CO2 Tension 54.5 mmHg (35.0-45.0); pH, Arterial 7.12 (7.35-7.45)
[2017-09-02 18:28] LABS: Actual Bicarbonate (HCO3a) 17.1 mEq/L (22-28); O2 Tension (PaO2) 49.7 mmHg (80.0-100.0)
[2017-09-02 18:34] LABS: Anion Gap 33 mmol/L (10-20); BUN (Urea Nitrogen) 39 mg/dL (8.4-25.7); Calc. Creatinine Clearance 27 mL/min (70-130); Calcium 7.9 mg/dL (7.8-10.44); Carbon Dioxide 15 mmol/L (22-29); Chloride 111 mmol/L (98-107); Estimated GFR-MDRD 20; Glucose 61 mg/dL (70-105); Magnesium 2.5 mg/dL (1.6-2.6); Phosphorus 10.9 mg/dL (2.3-4.7); Potassium 4.2 mmol/L (3.5-5.1); Sodium 155 mmol/L (136-145)
[2017-09-02 18:36] LABS: Hematocrit-ABG 17.1 % (42.0-52.0); Hemoglobin (Hb) 9.9 g/dL (14.0-18.0)
[2017-09-02 18:37] LABS: CKMB 2.2 ng/mL (0-6.6); Troponin I 0.107 ng/mL (< 0.028)
[2017-09-02 18:37] LABS: Calcium, Ionized 1.1 mmol/L (1.12-1.30); Puncture Site ALINE
[2017-09-02 18:38] LABS: ALV-art Gradient 595.175 (0-20)
[2017-09-02 18:38] LABS: Band 18 % (5-11); Lymphocytes 40 % (21-51); MDiff Complete? YES; Macrocytosis SLIGHT = 6-15 cells (100X) (0-5/hpf); Metamyelocyte 12 % (0-0); Monocytes 6 % (0-10); Myelocyte 3 % (0-0); Neutrophil 20 % (42-75); Nucleated RBC 26 % (0); PLT Morphology Comment Appears Adequate; Polychromasia SLIGHT = 2-3 cells (100X) (0-2/hpf); Toxic Granulation MODERATE; White Blood Cell (WBC) Count 3.3 thou/uL (4.8-10.8)
[2017-09-02 18:46] LABS: Lactic Acid 16.3 mmol/L (0.5-2.2)
--- NOTE | 2017-09-02 19:52 | RAD ---
ONE VIEW CHEST: HISTORY: Ventilated patient. Respiratory distress. COMPARISON: 09/02/2017 at 6:43 a.m. FINDINGS: Re-demonstration of endotracheal tube and nasogastric tube. Overlying pacer leads are noted. There is persistent opacification of the right hemithorax. Stable opacities in the left lung base. Stable configuration of the cardiac silhouette. No pneumothorax on this supine projection. No osseous abn ormalities. IMPRESSION: No significant interval change. POS: [facility]
--- NOTE | 2017-09-02 21:48 | DS ---
DATE OF ADMISSION: 08/30/2017 DATE OF : 09/02/2017 ADMISSION DIAGNOSES: 1. Status post fall with delayed presentation. 2. Traumatic brain injury including left epidural hematoma, bilateral subdural hematoma, subarachnoi d hemorrhage, contusions of frontal lobe. 3. Comminuted skull base fracture. 4. Comminuted impact to the nasal bone fracture. 5. Fracture of the anterior table of the frontal sinus. 6. Fracture of the left fifth rib. 7. Fracture of the scapula into the glenohumeral joint. 8. Compression fracture of T12. 9. Spinous process fracture of T11. 10. History of chronic alcohol use. 11. History of hypertension. SUMMARY: The patient is a 57-year-old man who was found in his home in a state of altered mental status, lying on his couch, neighbors had found a pull of blood at the base of his stairs. Up on investigation, they found the patient in his home lying on a couch in a state of altered mental st atus. The patient was brought to the Emergency Department, evaluated, examined and found to have the above injuries. On hospital day #3, the patient overnight had increasing tachycardia and increased respiratory rate with declining saturations, morning chest x-ray showed infiltrates on the right side . The patient at that time was started on antibiotics. The following day, the patient would continu e to decompensate later during that day. It was noted that the pneumonia had significantly enlarged. The patient was having more and more difficulty maintaining his oxygen saturation at the time he wa s electively intubated and placed on mechanical ventilatory support. During that night, the patient' s oxygen saturations will continue to decline and he also was noted to have a significant tachycardia , decreased urine output and hypotension. The patient had a central line and arterial line started a nd that following morning, the patient undergo bronchoscopy, which revealed a very large quantity of bile in the right lung. Unfortunately, the patient remained acidotic throughout the day, even in lig ht of multiple doses of sodium bicarbonate and a bicarbonate drip, the patient was resuscitated per h is septic shock and on the day of , the patient's acidosis would again remained problematic. He would often be a mixed respiratory metabolic acidosis and then would eventually became primarily met abolic. The patient's prognosis appeared to be more and more grim when urinary output had stopped an d he became more and more hypotensive and hypoxic. The patient ended up having short duration of car diac arrest x2. There was lengthy detailed family discussion and it was ultimately decided to electi vely extubate the patient. The patient was extubated at 1849 and his time of was 1855.
== END 2017-09-02 18:56 | disposition expired | DRG 987 ==
LOC: ERS 10:33 → CCU 11:10
PROVIDERS: ADMIT Surgery; ATTEND Surgery
PROC: 0BH18EZ Insertion of Endotracheal Airway into Trachea, Via Natural or Artificial Opening Endoscopic (ICD-10-PCS; 2017-08-31)
PROC: 5A1935Z Respiratory Ventilation, Less than 24 Consecutive Hours (ICD-10-PCS; 2017-08-31)
PROC: 0B9J8ZX Drainage of Left Lower Lung Lobe, Via Natural or Artificial Opening Endoscopic, Diagnostic (ICD-10-PCS; principal; 2017-09-02)
PROC: 0B9G8ZX Drainage of Left Upper Lung Lobe, Via Natural or Artificial Opening Endoscopic, Diagnostic (ICD-10-PCS; 2017-09-02)
PROC: 0B9F8ZX Drainage of Right Lower Lung Lobe, Via Natural or Artificial Opening Endoscopic, Diagnostic (ICD-10-PCS; 2017-09-02)
PROC: 0B9C8ZX Drainage of Right Upper Lung Lobe, Via Natural or Artificial Opening Endoscopic, Diagnostic (ICD-10-PCS; 2017-09-02)
DX: S06.5X9A Traumatic subdural hemorrhage with loss of consciousness of unspecified duration, initial encounter (principal); J96.01 Acute respiratory failure with hypoxia; T79.6XXA Traumatic ischemia of muscle, initial encounter; J69.0 Pneumonitis due to inhalation of food and vomit; S22.32XA Fracture of one rib, left side, initial encounter for closed fracture; S22.080A Wedge compression fracture of T11-T12 vertebra, initial encounter for closed fracture; S22.088A Other fracture of T11-T12 vertebra, initial encounter for closed fracture; E87.4 Mixed disorder of acid-base balance; J91.8 Pleural effusion in other conditions classified elsewhere; S06.4X9A Epidural hemorrhage with loss of consciousness of unspecified duration, initial encounter; S02.109A Fracture of base of skull, unspecified side, initial encounter for closed fracture; S02.2XXA Fracture of nasal bones, initial encounter for closed fracture; S02.19XA Other fracture of base of skull, initial encounter for closed fracture; S42.102A Fracture of unspecified part of scapula, left shoulder, initial encounter for closed fracture; I10 Essential (primary) hypertension; Z88.5 Allergy status to narcotic agent; F17.210 Nicotine dependence, cigarettes, uncomplicated; F10.10 Alcohol abuse, uncomplicated; R00.0 Tachycardia, unspecified; W19.XXXA Unspecified fall, initial encounter; Y92.89 Other specified places as the place of occurrence of the external cause; I95.9 Hypotension, unspecified; I46.8 Cardiac arrest due to other underlying condition; D70.9 Neutropenia, unspecified; R40.2423 Glasgow coma scale score 9-12, at hospital admission; G93.89 Other specified disorders of brain
CPT/HCPCS: 36415; 36416; 70450; 70486; 70496; 70498; 71045; 71260; 72125; 74018; 74177; 80048; 80053; 80306; 80307; 81003; 81015; 82533; 82550; 82553; 82805; 83605; 83735; 83880; 84100; 84484; 85007; 85025; 85027; 85060; 85610; 86850; 86900; 86901; 87040; 87070; 87077; 87086; 87186; 87205; 90471; 90715; 90732; 93005; 93306; 94002; 94003; 94640; 94660; 96360; 96361; G0009; G0390; G8978-GP-CM; G8979-GP-CJ; J0131; J0171; J1720; J1885; J2060; J2270; J2543; J3010; J3411; J3475; J3480; J7042; J7050; J7070; J7620; P9045; P9047; S0028